=== PATIENT | male | born 1970 | race Caucasian/White ===

== ENCOUNTER 2021-11-25 19:25 | Emergency (ER) | payer MEDICAID, OTHER ==
[~2021-11-25] VITALS: Ht 180.3 cm; Wt 79.5 kg
[2021-11-25] MEDS ORDERED: ASPIRIN 81 MG CHEW TABLET PO ONE (19:55)
[2021-11-25 20:51] LABS: BASO # 0.1 10^3/uL (0.0-0.2); BASO % 0.4 % (0.0-1.0); EOS # 0.3 10^3/uL (0.0-0.5); EOS % 2.5 % (0.0-3.0); HEMATOCRIT 46.8 % (42.0-52.0); HEMOGLOBIN 15.4 g/dl (13.5-17.5); LYMPH % 16.8 % (24.0-44.0); MEAN CORPUSCULAR HEMOGLOBIN 28.8 pg (27.0-33.0); MEAN CORPUSCULAR HGB CONC 32.9 g/dl (32.0-36.5); MEAN CORPUSCULAR VOLUME 87.5 fl (80.0-96.0); MONO # 0.8 10^3/uL (0.0-0.8); MONO % 6.9 % (2.0-8.0); NEUTROPHILS # 8.8 10^3/uL (1.5-8.5); NEUTROPHILS % 72.8 % (36.0-66.0); PLATELET COUNT, AUTOMATED 442 10^3/uL (150-450); RED BLOOD COUNT 5.35 10^6/uL (4.30-6.10); WHITE BLOOD COUNT 12.1 10^3/uL (4.0-10.0)
[2021-11-25 21:04] LABS: INR 1.04
[2021-11-25 21:07] LABS: D-DIMER QUANT 308.44 ng/ml (<500)
[2021-11-25 21:10] LABS: MB/CK RELATIVE INDEX 0.85 (< OR =4)
[2021-11-25 21:10] LABS: ALBUMIN 4.4 GM/DL (3.2-5.2); BILIRUBIN,DIRECT 0.2 MG/DL (0.0-0.2); BILIRUBIN,TOTAL 0.7 MG/DL (0.2-1.0); CALCIUM LEVEL 9.5 MG/DL (8.5-10.1); CREATININE FOR GFR 1.43 MG/DL (0.70-1.30); GLOMERULAR FILTRATION RATE 55.1 (>56); POTASSIUM SERUM 4.2 MEQ/L (3.5-5.1); TOTAL PROTEIN 8.4 GM/DL (6.4-8.2)
[2021-11-25 22:06] VITALS: BP 136/80
== END 2021-11-25 22:05 | disposition home or self-care (01) ==
LOC: EDBD 19:25 → M ED 19:25
DX: R07.89 Other chest pain (principal); Z82.49 Family history of ischemic heart disease and other diseases of the circulatory system; Z88.0 Allergy status to penicillin

== ENCOUNTER 2021-11-27 15:53 | Emergency (ER) | payer OTHER ==
[~2021-11-27] VITALS: Ht 180.3 cm; Wt 89.9 kg
[2021-11-27] MEDS ORDERED: SERT50TA29 (16:00)
[2021-11-27] MEDS ORDERED: HYDR50TA70 (16:00)
[2021-11-27] MEDS ORDERED: SERT25TA21 (16:00)
[2021-11-27 19:37] LABS: BASO # 0.1 10^3/uL (0.0-0.2); BASO % 0.7 % (0.0-1.0); EOS # 0.4 10^3/uL (0.0-0.5); EOS % 3.8 % (0.0-3.0); HEMATOCRIT 46.6 % (42.0-52.0); HEMOGLOBIN 15.3 g/dl (13.5-17.5); LYMPH # 1.9 10^3/uL (1.5-5.0); LYMPH % 15.9 % (24.0-44.0); MEAN CORPUSCULAR HEMOGLOBIN 28.6 pg (27.0-33.0); MEAN CORPUSCULAR HGB CONC 32.8 g/dl (32.0-36.5); MEAN CORPUSCULAR VOLUME 87.1 fl (80.0-96.0); MONO # 0.8 10^3/uL (0.0-0.8); NEUTROPHILS # 8.4 10^3/uL (1.5-8.5); NEUTROPHILS % 72.3 % (36.0-66.0); PLATELET COUNT, AUTOMATED 423 10^3/uL (150-450); RED BLOOD COUNT 5.35 10^6/uL (4.30-6.10); WHITE BLOOD COUNT 11.6 10^3/uL (4.0-10.0)
[2021-11-27 20:05] LABS: CALCIUM LEVEL 9.7 MG/DL (8.5-10.1); CREATININE FOR GFR 1.38 MG/DL (0.70-1.30); GLOMERULAR FILTRATION RATE 57.4 (>56); POTASSIUM SERUM 4.9 MEQ/L (3.5-5.1)
[2021-11-27] MEDS ORDERED: BENZ200C70 PO (21:04)
[2021-11-27] MEDS ORDERED: NAPR-837 PO (21:04)
[2021-11-27 21:30] VITALS: BP 133/98
== END 2021-11-27 21:31 | disposition home or self-care (01) ==
LOC: M ED 15:53
DX: R09.1 Pleurisy (principal); R05.9 Cough, unspecified; E86.0 Dehydration; R00.1 Bradycardia, unspecified; I45.19 Other right bundle-branch block; F41.9 Anxiety disorder, unspecified; F32.9 Major depressive disorder, single episode, unspecified; Z88.0 Allergy status to penicillin

== ENCOUNTER 2021-12-14 20:43 | Emergency (ER) | payer OTHER ==
[~2021-12-14] VITALS: Ht 180.3 cm; Wt 75.0 kg
[~2021-12-14 20:43] MED LIST: BENZ200C70 PO; HYDR50TA70; NAPR-837 PO; SERT25TA21; SERT50TA29
[2021-12-14] MEDS ORDERED: MORPHINE 2 MG/ML 1ML VIAL (J2270) IV PRN (21:00)
[2021-12-14] MEDS ORDERED: NS 1,000 ML IV ONE (21:00)
[2021-12-14] MEDS ORDERED: ONDANSETRON 4MG/2ML VIAL IV ONE (21:00)
[2021-12-14] MEDS ORDERED: PANTOPRAZOLE 40MG VIAL (C9113 PER 1) IV ONE (21:00)
[2021-12-14 21:22] LABS: BASO # 0.1 10^3/uL (0.0-0.2); BASO % 0.8 % (0.0-1.0); EOS % 7.7 % (0.0-3.0); HEMATOCRIT 46.8 % (42.0-52.0); HEMOGLOBIN 15.7 g/dl (13.5-17.5); LYMPH % 14.9 % (24.0-44.0); MEAN CORPUSCULAR HEMOGLOBIN 28.9 pg (27.0-33.0); MEAN CORPUSCULAR HGB CONC 33.5 g/dl (32.0-36.5); MONO # 1.2 10^3/uL (0.0-0.8); MONO % 9.1 % (2.0-8.0); NEUTROPHILS # 8.9 10^3/uL (1.5-8.5); NEUTROPHILS % 67.1 % (36.0-66.0); PLATELET COUNT, AUTOMATED 481 10^3/uL (150-450); RED BLOOD COUNT 5.44 10^6/uL (4.30-6.10); WHITE BLOOD COUNT 13.3 10^3/uL (4.0-10.0)
[2021-12-14 21:45] LABS: ALBUMIN 4.1 GM/DL (3.2-5.2); ALT/SGPT 41 U/L (12-78); BILIRUBIN,DIRECT < 0.1 MG/DL (0.0-0.2); BILIRUBIN,TOTAL 0.4 MG/DL (0.2-1.0); BLOOD UREA NITROGEN 17 MG/DL (7-18); CALCIUM LEVEL 9.3 MG/DL (8.5-10.1); CARBON DIOXIDE LEVEL 28 MEQ/L (21-32); CHLORIDE LEVEL 103 MEQ/L (98-107); CREATININE FOR GFR 1.38 MG/DL (0.70-1.30); GLOMERULAR FILTRATION RATE 57.4 (>56); GLUCOSE, FASTING 100 MG/DL (70-100); LIPASE 137 U/L (73-393); POTASSIUM SERUM 3.9 MEQ/L (3.5-5.1); SODIUM LEVEL 139 MEQ/L (136-145); TOTAL PROTEIN 8.5 GM/DL (6.4-8.2)
[2021-12-14 21:47] LABS: CK-MB VALUE MASS 1.3 NG/ML (<3.6); MB/CK RELATIVE INDEX 0.68 (< OR =4)
[2021-12-14 22:14] LABS: RSV AMPLIFICATION NEGATIVE (NEGATIVE)
[2021-12-14 22:30] VITALS: BP 134/72
== END 2021-12-14 22:37 | disposition home or self-care (01) ==
LOC: M ED 20:43
DX: R07.89 Other chest pain (principal); R11.2 Nausea with vomiting, unspecified; R42 Dizziness and giddiness; F41.9 Anxiety disorder, unspecified; Z88.0 Allergy status to penicillin; Z79.899 Other long term (current) drug therapy
CPT/HCPCS: 71045; 80048; 80076; 82550; 82553; 83690; 85025; 87631; 93005; 93041; 94760; 96361; 96374; 96375; 99284; C9113; J2270; J2405